=== PATIENT | female | born 1945 | race African-American/Black ===

== ENCOUNTER 2024-01-29 11:27 | Emergency (ER) | payer OTHER ==
[~2024-01-29] VITALS: Ht 152.4 cm; Wt 68.0 kg
[2024-01-29 11:31] VITALS: O2SAT 98
[2024-01-29 12:31] LABS: BASOPHILS % 1.1 % (0.0-2.0); EOSINOPHILS % 4.8 % (0.0-5.0); HEMATOCRIT. 40.1 % (36.0-48.0); HEMOGLOBIN. 13.1 g/dL (12.0-16.0); LYMPHOCYTES % 38.5 % (20.0-50.0); MEAN CORPUSCULAR HEMOGLOBIN 27.9 pg (28.0-32.0); MEAN CORPUSCULAR HGB CONC 32.7 g/dL (31.0-37.0); MEAN CORPUSCULAR VOLUME 85.3 fL (81.0-99.0); MEAN PLATELET VOLUME 7.9 fl (7.4-10.4); MONOCYTES % 12.6 % (2.0-8.0); PLATELET 253 x1000/uL (130-400); RED CELL DISTRIBUTION WIDTH 13.4 % (11.6-14.6); WHITE BLOOD COUNT 4.2 x1000/uL (4.5-11.0)
[2024-01-29 12:38] LABS: CHLORIDE 104 mEq/L (98-107); POTASSIUM 3.6 mEq/L (3.5-5.1); SODIUM 138 mEq/L (136-145)
[2024-01-29 12:39] LABS: CARBON DIOXIDE 27 mEq/L (21-32)
[2024-01-29 12:40] LABS: CALCIUM 9.2 mg/dL (8.7-10.4); INR 0.9; PROTHROMBIN TIME 10.6 sec (9.6-11.0)
[2024-01-29 12:44] LABS: CREATININE 0.7 mg/dL (0.6-1.0); GLUCOSE 103 mg/dL (70-105)
[2024-01-29 12:45] LABS: UREA NITROGEN BLOOD 11 mg/dL (9-23)
[2024-01-29 12:46] LABS: ALANINE AMINOTRANSFERASE < 7 IU/L (10-49); ALBUMIN 4.4 g/dL (3.2-4.8); ASPARTATE AMINOTRANSFERASE 18 IU/L (<34)
[2024-01-29 12:47] LABS: BILIRUBIN TOTAL 0.6 mg/dL (0.1-1.0); PROTEIN TOTAL 7.2 g/dL (6.0-8.3)
[2024-01-29 13:05] LABS: TROPONIN I HIGH SENSITIVITY < 4 ng/L (3.0-34)
[2024-01-29 14:32] LABS: TROPONIN I HIGH SENSITIVITY < 4 ng/L (3.0-34)
[2024-01-29 14:43] LABS: CLARITY URINE CLEAR (CLEAR); COLOR URINE YELLOW (YELLOW); GLUCOSE URINE NEGATIVE (NEGATIVE); KETONES URINE NEGATIVE (NEGATIVE); LEUKOCYTE ESTERASE URINE TRACE (NEGATIVE); NITRITE URINE NEGATIVE (NEGATIVE); OCCULT BLOOD URINE NEGATIVE (NEGATIVE); PROTEIN URINE NEGATIVE (NEGATIVE); SPECIFIC GRAVITY URINE 1.008 (1.005-1.030); UROBILINOGEN URINE 0.2 E.U./dL (0.2-1.0)
[2024-01-29 15:04] LABS: RBC URINE NONE SEEN /hpf (0-2); SQUAMOUS EPITHELIAL CELL URINE 1+ /lpf (RARE/1+)
[2024-01-29 15:05] LABS: BACTERIA URINE FEW; YEAST URINE NONE SEEN
[2024-01-29 15:30] VITALS: BP 140/71; PULSE 61; RESP 13; TEMP 98.5
[2024-01-29] MEDS ORDERED: CEPH250C2 MT (15:41)
== END 2024-01-29 16:13 | disposition home or self-care (01) ==
LOC: ER 11:43
DX: N39.0 Urinary tract infection, site not specified (principal); Z88.5 Allergy status to narcotic agent; E11.9 Type 2 diabetes mellitus without complications; I10 Essential (primary) hypertension; R51.9 Headache, unspecified
CPT/HCPCS: 36415; 71045; 80053; 81003; 83880; 84484; 85025; 93005; 99285